=== PATIENT | male | born 1985 | race Caucasian/White ===

== ENCOUNTER 2025-02-17 12:19 | Emergency (ER) | payer BC ==
[~2025-02-17] VITALS: Ht 167.6 cm; Wt 114.0 kg
[2025-02-17] VITALS (7 sets, daily range): BP systolic 125; BP diastolic 80; PULSE 58–129; RESP 16–44; TEMP 36.3; O2SAT 70–90
[2025-02-17] MEDS: MIDAZOLAM HCL 100 MG in DEXT 5% WATER 80 ML IV ONE (12:30)
[2025-02-17] MEDS: SUCCINYLCHOLINE CHLORIDE 200MG/10ML IV ONE ×2 (12:30)
[2025-02-17] MEDS: ETOMIDATE 2MG/ML 10ML VIAL IV ONE (12:30)
[2025-02-17] MEDS: MIDAZOLAM HCL 2 MG/2 ML VIAL IV ONE (12:41)
[2025-02-17] MEDS ORDERED: MIDAZOLAM HCL 100 MG in DEXT 5% WATER 80 ML IV PRN (12:45)
[2025-02-17 12:53] LABS: BASOPHILS % 0.4 % (0.0-2.0); EOSINOPHILS % 0.4 % (0.0-5.0); HEMATOCRIT. 49.7 % (42.0-52.0); HEMOGLOBIN. 16.4 g/dL (14.0-18.0); LYMPHOCYTES % 41.2 % (20.0-50.0); MEAN PLATELET VOLUME 8.7 fl (7.4-10.4); MONOCYTES % 4.9 % (2.0-8.0); NEUTROPHILS % 53.1 % (40.0-76.0); PLATELET 311 x1000/uL (130-400); RED BLOOD CELL COUNT 5.51 mill/uL (4.7-6.1); RED CELL DISTRIBUTION WIDTH 13.8 % (11.6-14.6)
[2025-02-17 13:07] LABS: INR 1.0
[2025-02-17 13:12] LABS: CREATININE 1.1 mg/dL (0.6-1.3); ETHANOL BLOOD < 10 mg/dL (<10); TROPONIN I HIGH SENSITIVITY 51 ng/L (3.0-53); UREA NITROGEN BLOOD 15 mg/dL (9-23)
[2025-02-17 13:13] LABS: ASPARTATE AMINOTRANSFERASE 40 IU/L (<34); PROTEIN TOTAL 7.1 g/dL (6.0-8.3)
[2025-02-17 13:14] LABS: BILIRUBIN DIRECT 0.2 mg/dL (<=3.0); BILIRUBIN TOTAL 0.7 mg/dL (0.1-1.0)
[2025-02-17 13:42] LABS: BG BASE EXCESS -5.3 mmol/L (-2.0-3.0); BG CARBOXYHEMOGLOBIN 0.6 % (0.5-1.5); BG DEOXYHEMOGLOBIN 18.3 % (0.0-5.0); BG FRACTION INSPIRED OXYGEN 100; BG HCO3 ACT 19.4 mmol/L (21.0-28.0); BG METHEMOGLOBIN 0.1 % (0.5-1.5); BG OXYGEN SATURATION 81.6 % (94.0-98.0); BG OXYHEMOGLOBIN 81.0 % (94.0-98.0); BG PCO2 36.1 mmHg (35.0-48.0); BG PEEP (cmH2O) 5.0 cmH2O; BG PH 7.349 (7.350-7.450); BG PO2 47.3 mmHg (83.0-108.0); BG SAMPLE SITE LEFT RADIAL; BG TIDAL VOLUME(mL) 500.0 mL; BG TOTAL HEMOGLOBIN 17.4 g/dL (13.5-17.5); BG TOTAL RESPIRATORY RATE 27 b/min; BG VENT MODE VENT - AC; BG VENT RATE 16.0 set
[2025-02-17] MEDS: MIDAZOLAM 100MG/100ML PREMIX IV PRN (13:54)
[2025-02-17] MEDS: PROPOFOL 10MG/ML 100ML 100 ML IV SCH (13:59)
[2025-02-17] MEDS ORDERED: NICARDIPINE 40MG/200ML PREMIX 200 ML IV PRN (14:00)
[2025-02-17] MEDS: LEVETIRACETAM 1000MG PREMIX 100 ML IV ONE (14:22)
[2025-02-17] MEDS: PIPERACILLIN/TAZO 3.375G/50ML 50 ML IV ONE (14:48)
[2025-02-17] MEDS: SODIUM CHLORIDE 0.9% 1,000 ML IV ONE (14:48)
[2025-02-17] MEDS: SODIUM BICARBONATE 8.4% 50MEQ/50ML SYR IV ONE (16:43)
[2025-02-17 16:44] LABS: BG BASE EXCESS -9.1 mmol/L (-2.0-3.0); BG CARBOXYHEMOGLOBIN 0.4 % (0.5-1.5); BG DEOXYHEMOGLOBIN 41.5 % (0.0-5.0); BG FRACTION INSPIRED OXYGEN 100; BG HCO3 ACT 20.5 mmol/L (21.0-28.0); BG METHEMOGLOBIN 0.3 % (0.5-1.5); BG OXYGEN SATURATION 58.2 % (94.0-98.0); BG OXYHEMOGLOBIN 57.8 % (94.0-98.0); BG PCO2 57.6 mmHg (35.0-48.0); BG PEEP (cmH2O) 6.0 cmH2O; BG PH 7.170 (7.350-7.450); BG PIP 12.0 cmH2O; BG PO2 36.4 mmHg (83.0-108.0); BG SAMPLE SITE RIGHT RADIAL; BG TOTAL HEMOGLOBIN 20.1 g/dL (13.5-17.5); BG VENT MODE VENT -A/C P/C; BG VENT RATE 31.0 set
[2025-02-17] MEDS: MANNITOL 12.5G (25%) VIAL 50ML IV ONE (18:09)
[2025-02-17] MEDS ORDERED: FUROSEMIDE 100MG/10ML VIAL IVP ONE (18:15)
[2025-02-17] MEDS ORDERED: INSULIN LISPRO 100 UNITS/ML SUBCUT SCH (18:20)
[2025-02-17] MEDS ORDERED: IPRATROPIUM/ALBUTEROL 0.5-3(2.5)MG/3ML NEB HHN PRN (18:30)
[2025-02-17] MEDS ORDERED: ONDANSETRON HCL 4MG/2ML INJ IV PRN (18:30)
[2025-02-17] MEDS ORDERED: DEXTROSE 50% WATER 50ML SYRINGE IV PRN (18:30)
[2025-02-17] MEDS ORDERED: EPINEPHRINE 0.1MG/ML (1:10,000) 10ML SYR ONE (18:55)
[2025-02-17] MEDS ORDERED: LEVETIRACETAM 1000MG PREMIX 100 ML IV SCH (21:00)
[2025-02-17] MEDS ORDERED: LEVETIRACETAM 500MG in NACL 100ML PREMIX IV SCH (21:00)
[2025-02-17] MEDS ORDERED: BLOOD SUGAR DIAGNOSTIC STRIP TEST SCH (21:00)
== END 2025-02-17 19:16 ==
LOC: ER 12:19
DX: E11.9 Type 2 diabetes mellitus without complications (principal); I46.9 Cardiac arrest, cause unspecified; J81.0 Acute pulmonary edema; I60.9 Nontraumatic subarachnoid hemorrhage, unspecified
CPT/HCPCS: 80076; 80048; 80320; 82140; 82550; 82962; 83036; 83735; 85025; 85610; 85730; 87040; 84484; 36415; 71045; 70450; 82805; 82375; 92950; 94664; 93005; 94070; 31500; 96367; 96365; 96366; 96375; 99291; 36600; Z7610 ×5; J1953; J3490 ×2; J2150; J2250; J2543; J2704; J7030; 94002; J7060; G0480